=== PATIENT | male | born 1990 | race African-American/Black ===

== ENCOUNTER 2017-06-21 22:45 | Emergency (ER) | payer SELFPAY | END 2017-06-21 23:24 | disposition home or self-care (01) | LOC: SCSER 22:45 | DX: S46.012A Strain of muscle(s) and tendon(s) of the rotator cuff of left shoulder, initial encounter (principal); I10 Essential (primary) hypertension; F41.9 Anxiety disorder, unspecified; F17.210 Nicotine dependence, cigarettes, uncomplicated; X50.0XXA Overexertion from strenuous movement or load, initial encounter | CPT/HCPCS: 99283 ==

== ENCOUNTER 2018-04-14 08:38 | Emergency (ER) | payer SELFPAY ==
[2018-04-14] MEDS ORDERED: Ketorolac Tromethamine 30 MG/ML VIAL ONE (09:20)
--- NOTE | 2018-04-14 09:38 | CT ---
CT BRAIN WITHOUT CONTRAST: History: Bitemporal headache. FINDINGS: Comparison is made with exam of 11-17-08. No evidence of infarct, hemorrhage, midline shift of abnormal extraaxial fluid collection is seen. Th e ventricular size is normal and the basilar cisterns patent. The bony calvarium is intact. Visualize d paranasal sinuses and mastoid air cells are well aerated. IMPRESSION: No CT evidence of acute intracranial process. POS: [facility]
== END 2018-04-14 09:31 | disposition home or self-care (01) ==
LOC: SCSER 08:38
DX: R51 Headache (principal)
CPT/HCPCS: 70450; 96372; J1885

== ENCOUNTER 2024-01-10 14:10 | Emergency (ER) | payer OTHER | END 2024-01-10 16:26 | disposition home or self-care (01) | LOC: ERS 14:10 | DX: M79.651 Pain in right thigh (principal); F17.210 Nicotine dependence, cigarettes, uncomplicated; F17.290 Nicotine dependence, other tobacco product, uncomplicated; V89.2XXA Person injured in unspecified motor-vehicle accident, traffic, initial encounter | CPT/HCPCS: 99283 ==

== ENCOUNTER 2024-07-21 07:03 | Emergency (ER) | payer OTHER | END 2024-07-21 07:55 | disposition home or self-care (01) | LOC: ERS 07:03 | DX: S93.401A Sprain of unspecified ligament of right ankle, initial encounter (principal); F17.210 Nicotine dependence, cigarettes, uncomplicated; F17.290 Nicotine dependence, other tobacco product, uncomplicated; X50.1XXA Overexertion from prolonged static or awkward postures, initial encounter | CPT/HCPCS: 99283 ==